=== PATIENT | female | born 1935 | race Caucasian/White ===

== ENCOUNTER 2020-05-15 12:07 | Outpatient (CLI) | payer MEDICARE, SELFPAY ==
--- NOTE | ~2020-05-15 | XR_ITS ---
EXAMINATION: XR knee RT 3V DATE: 05/15/2020 12:30 INDICATION: Right knee pain. TECHNIQUE: 3 views of right knee were obtained. COMPARISON: None. FINDINGS: There is varus angulation at the knee. No fracture. There is moderate osteoarthritis of med ial compartment and mild osteoarthritis of lateral and patellofemoral compartments. There is a modera te-sized knee joint effusion. IMPRESSION: 1. Moderate right knee osteoarthritis. 2. Moderate-sized right knee joint effusion. Reviewed, dictated and finalized at location A. ING CLERK
== END 2020-05-15 12:08 | disposition home or self-care (01) ==
LOC: CHSIMG 12:13
PROVIDERS: PCP Family Medicine; Visit Provider Family Medicine
DX: M19.90 Unspecified osteoarthritis, unspecified site (principal)
CPT/HCPCS: 73562

== ENCOUNTER 2020-10-21 14:22 | Outpatient (RCR) | payer MEDICARE, SELFPAY ==
--- NOTE | 2020-10-21 15:35 | PTOPEVAL ---
Thank you for referring Maggie La to [facility].? The patient is scheduled to be seen for therapy? __2__x/week for 10 visits. Please review, sign, date and return this plan of care INDIGO. I agree with and certify that the following plan of care is medically necessary. Referring Physician Date Admitting Provider: Attending Provider: Paul Joyner DO Referring Provider: *PT Outpatient Evaluation Start: 10/21/20 14:57 Freq: Status: Active Protocol: Document 10/21/20 14:58 JACKI (Rec: 10/21/20 15:34 [email or web address]) Therapy Assessment Status Assessment Status Assessment Status Evaluation Evaluation Information Problem Diagnosis right knee Onset 01/31/20 Subjective Information Pt. reports that she was Query Text:As Reported By Patient/ pushing a sign down in a rock Family bed and felt pain in the right knee. She states that she was tested for a blood clot. She reports that she notices pain on the inside of the right knee and thigh. She reports that she had an injection on Tuesday which did help to reduce pain. She states that she does have arthritis in the right knee. She reports that her goal for therapy is to decrease her pain. 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 Dominance Right Activity of Daily Living Ability Independent Indoor/Home Mobility Independent Community Mobility Independent Stairs Ability Independent Functional Cognition (Planning, Shopping Independent , Taking Medications) Cooking Yes Cleaning Yes Laundry Yes Shopping Yes Driving Yes Pain Assessment Timing of Pain Assessment Timing of Pain Assessment Pre-Treatment Pain Scale Pain Scale Used Numeric (1 - 10) Self Report Pain Assessment Right Knee(s) Reported Pain Level 2 Pain Frequency Continuous Lowest Pain Intensity 2 Greatest Pain Intensity 8 Pain Score Pain Score 2: Self Report Interventions Used Interventions Used By Clinicians Electrical Stimulation, Exercise,Heat Lower Extremity Range of Motion General Lower Extremity Range of M
== END 2020-12-01 18:19 | disposition home or self-care (01) ==
LOC: CHSPT 14:22
PROVIDERS: PCP Family Medicine; Visit Provider Family Medicine
DX: M17.11 Unilateral primary osteoarthritis, right knee (principal)
CPT/HCPCS: 97014; 97110; 97161; 97530; G0283